=== PATIENT | male | born 1940 | race Caucasian/White ===

== ENCOUNTER → 2016-06-28 | Outpatient (CLI) | payer OTHER ==
[~2016-06-28] MED LIST: ASPIR-LOW81 MG PO; ASPIR-TRIN325 M1 PO; CALCIUM 500 +1 EAC2 PO; CENTRUM SILVER1 EAC3 PO; DECADRON1 MG PO; DULERA 100 MCG/13 GM IH; ENSURE ACTIVE414 ML PO; GLUCAGEN1 MG IM/SC; HEPARIN SO5000 UNITS SC; KEFLEX500 MG PO; LO-DOSE ASPIRIN81 M1 PO; LO-DOSE ASPIRIN81 M2 PO; MIRAPEX0.25 MG PO; NOVOLOG PE100 UNITS/ SC; OCUVITE LUTEIN1 EACH PO; OCUVITE TABLET1 EACH PO; PEPCID20 MG PO; POLYTRIM EYE DR10 ML LEFT EYE; PRAVACHOL40 MG PO; PRAVASTATIN SOD20 MG PO; PRAVASTATIN SOD40 MG PO; SENNA8.6 MG PO; SERTRALINE HCL50 MG PO; SINEMET 25-1001 EACH PO; TAMSULOSIN HCL0.4 MG PO; TRAMADOL HCL50 MG PO; XARELTO1 EACH PO; XARELTO20 MG PO; ZANTAC150 MG PO; ZOLOFT100 MG PO
== END | disposition home or self-care (01) ==
LOC: RAD 08:52
DX: M48.04 Spinal stenosis, thoracic region (principal); Z53.8 Procedure and treatment not carried out for other reasons

== ENCOUNTER → 2016-07-21 | Outpatient (CLI) | payer MEDICARE, OTHER ==
[~2016-07-21] MED LIST changes: -CALCIUM 500 +1 EAC2 PO; -CENTRUM SILVER1 EAC3 PO; -ENSURE ACTIVE414 ML PO; -GLUCAGEN1 MG IM/SC; -HEPARIN SO5000 UNITS SC; -LO-DOSE ASPIRIN81 M2 PO; -NOVOLOG PE100 UNITS/ SC; -SENNA8.6 MG PO; -TRAMADOL HCL50 MG PO
== END | disposition home or self-care (01) ==
LOC: CDC 09:38
DX: I45.9 Conduction disorder, unspecified (principal); R00.1 Bradycardia, unspecified; M48.04 Spinal stenosis, thoracic region; M51.34 Other intervertebral disc degeneration, thoracic region; R26.0 Ataxic gait
CPT/HCPCS: 93000

== ENCOUNTER 2016-07-26 08:38 | Inpatient (IN) | payer OTHER ==
[~2016-07-26] VITALS: Ht 172.7 cm; Wt 89.0 kg
[2016-08-04] VITALS (8 sets, daily range): BP systolic 115–161; BP diastolic 53–84
[2016-08-04 18:20] LABS: EOSINOPHIL (%) 0.1 % (0-5); HEMATOCRIT 42.4 % (38.0-50.0); IMMATURE GRANULOCYTE (%) 0.6 % (0.0-0.7); IMMATURE GRANULOCYTE COUNT 0.1 K/uL; LYMPHOCYTE COUNT 0.6 K/uL (1.0-2.8); MCH 30.2 PG (29.0-34.0); MCHC 33.5 G/DL (30.0-36.0); MCV 90.2 FL (86-99); MEAN PLAT.VOLUME 10.8 uM^3 (9.0-12.4); MONOCYTE (%) 2.7 % (3-12); MONOCYTE COUNT 0.4 K/uL (0-0.8); NEUTROPHIL (%) 92.5 % (45-76); NEUTROPHIL COUNT 13.3 K/uL (1.8-6.4); PLATELET COUNT 184 K/uL (156-360); RBC DIS.WIDTH-CV 14.8 % (11.8-14.6); RBC DIS.WIDTH-SD 48.6 % (39-53)
[2016-08-04 18:25] LABS: WHITE BLOOD COUNT 14.3 K/uL (4.1-10.2)
[2016-08-04 19:53] LABS: POINT-OF-CARE METER ID UU13113803
[2016-08-04 20:00] LABS: ANION GAP 10 MEQ/L (2-14); CHLORIDE 100 MEQ/L (99-109); GFR ESTIMATE (CALCULATED) > 59 mL/min/; GLUCOSE 183 mg/dL (70-99); MAGNESIUM 1.8 mg/dl (1.3-2.7); POTASSIUM 4.5 MEQ/L (3.7-5.4); SAMPLE HEMOLYSIS CHECK 0; SAMPLE ICTERIC CHECK 0; SAMPLE LIPEMIA CHECK 0; SODIUM 136 MEQ/L (136-147); UREA NITROGEN (BUN) 24 mg/dL (9-23)
[2016-08-05] VITALS (25 sets, daily range): BP systolic 90–159; BP diastolic 62–100
[2016-08-05 00:30] LABS: POINT-OF-CARE METER ID UU13113803
[2016-08-05 06:05] LABS: HEMATOCRIT 37.4 % (38.0-50.0); MCH 30.9 PG (29.0-34.0); MCHC 34.5 G/DL (30.0-36.0); MCV 89.7 FL (86-99); MEAN PLAT.VOLUME 10.9 uM^3 (9.0-12.4); PLATELET COUNT 165 K/uL (156-360); RBC DIS.WIDTH-CV 14.8 % (11.8-14.6); RBC DIS.WIDTH-SD 48.3 % (39-53); RED BLOOD COUNT 4.17 M/uL (4.00-5.50); WHITE BLOOD COUNT 11.3 K/uL (4.1-10.2)
[2016-08-05 06:31] LABS: ANION GAP 10 MEQ/L (2-14); CHLORIDE 102 MEQ/L (99-109); GFR ESTIMATE (CALCULATED) > 59 mL/min/; GLUCOSE 192 mg/dL (70-99); POTASSIUM 4.4 MEQ/L (3.7-5.4); SAMPLE HEMOLYSIS CHECK 0; SAMPLE ICTERIC CHECK 0; SAMPLE LIPEMIA CHECK 0; SODIUM 136 MEQ/L (136-147); UREA NITROGEN (BUN) 18 mg/dL (9-23)
[2016-08-05 11:55] LABS: MAGNESIUM 1.9 mg/dl (1.3-2.7)
[2016-08-05 12:01] LABS: POINT-OF-CARE METER ID UU13113803
[2016-08-05 17:04] LABS: POINT-OF-CARE METER ID UU14174217
[2016-08-05 21:40] LABS: ADD MIUA? YES; BILIRUBIN NEGATIVE; BLOOD MODERATE; COLOR GREEN ((YELLOW)); GLUCOSE (STRIP) 250; KETONES NEGATIVE; LEUKOCYTES NEGATIVE; NITRITE NEGATIVE; PH, URINE 6.5 (5-8); PROTEIN (STRIP) NEGATIVE; SPECIFIC GRAVITY 1.013 (1.000-1.030); UROBILINOGEN 0.2 MG/DL (0.2-1.0)
[2016-08-05 21:52] LABS: BACTERIA RARE /HPF; EPITHELIAL CELLS NONE SEEN /HPF; HYALINE CASTS 0-5 /LPF; MUCUS TRACE /LPF; RED BLOOD CELLS 20-30 /HPF (0-5); UCUL ADDED? NO; WHITE BLOOD CELLS 0-5 /HPF (0-5)
[2016-08-05 22:01] LABS: POINT-OF-CARE METER ID UU14174217
[2016-08-06] VITALS (18 sets, daily range): BP systolic 99–153; BP diastolic 48–78
[2016-08-06 05:33] LABS: EOSINOPHIL (%) 0 % (0-5); HEMATOCRIT 33.4 % (38.0-50.0); IMMATURE GRANULOCYTE (%) 0.2 % (0.0-0.7); LYMPHOCYTE COUNT 0.6 K/uL (1.0-2.8); MCH 30.9 PG (29.0-34.0); MCHC 34.1 G/DL (30.0-36.0); MCV 90.5 FL (86-99); MEAN PLAT.VOLUME 10.8 uM^3 (9.0-12.4); MONOCYTE (%) 4.3 % (3-12); MONOCYTE COUNT 0.4 K/uL (0-0.8); NEUTROPHIL (%) 89.5 % (45-76); NEUTROPHIL COUNT 9.2 K/uL (1.8-6.4); PLATELET COUNT 155 K/uL (156-360); RBC DIS.WIDTH-CV 14.9 % (11.8-14.6); RBC DIS.WIDTH-SD 49.2 % (39-53); RED BLOOD COUNT 3.69 M/uL (4.00-5.50); WHITE BLOOD COUNT 10.3 K/uL (4.1-10.2)
[2016-08-06 05:57] LABS: ANION GAP 8 MEQ/L (2-14); CHLORIDE 104 MEQ/L (99-109); GFR ESTIMATE (CALCULATED) > 59 mL/min/; GLUCOSE 168 mg/dL (70-99); POTASSIUM 4.7 MEQ/L (3.7-5.4); SAMPLE HEMOLYSIS CHECK 0; SAMPLE ICTERIC CHECK 0; SAMPLE LIPEMIA CHECK 0; SODIUM 136 MEQ/L (136-147); UREA NITROGEN (BUN) 22 mg/dL (9-23)
[2016-08-06 12:03] LABS: POINT-OF-CARE METER ID UU13113803
[2016-08-06 18:06] LABS: POINT-OF-CARE METER ID UU14174217
[2016-08-07 00:40] VITALS: BP 136/70
[2016-08-07 03:41] VITALS: BP 149/72
[2016-08-07 13:49] VITALS: BP 158/75
[2016-08-07 17:25] VITALS: BP 146/66
[2016-08-07 21:00] VITALS: BP 125/74
[2016-08-07 22:40] LABS: POINT-OF-CARE METER ID UU14188577; POINT-OF-CARE USER ID AHSUCEG
[2016-08-08 00:21] VITALS: BP 154/78
[2016-08-08 11:35] VITALS: BP 136/76
[2016-08-08 16:14] VITALS: BP 133/75
[2016-08-09 00:02] VITALS: BP 129/73
[2016-08-09 07:41] LABS: POINT-OF-CARE METER ID UU14188577
[2016-08-09 07:48] VITALS: BP 128/78
[2016-08-09 12:14] LABS: POINT-OF-CARE METER ID UU14188577
[2016-08-09 13:47] LABS: POINT-OF-CARE METER ID UU14149397
[2016-08-09 13:48] LABS: HEMATOCRIT 31.7 % (38.0-50.0); MCH 29.7 PG (29.0-34.0); MCHC 33.1 G/DL (30.0-36.0); MCV 89.5 FL (86-99); MEAN PLAT.VOLUME 10.5 uM^3 (9.0-12.4); PLATELET COUNT 149 K/uL (156-360); RBC DIS.WIDTH-CV 14.9 % (11.8-14.6); RBC DIS.WIDTH-SD 48.9 % (39-53); RED BLOOD COUNT 3.54 M/uL (4.00-5.50)
[2016-08-09 13:56] LABS: WHITE BLOOD COUNT 6.7 K/uL (4.1-10.2)
[2016-08-09 14:02] LABS: ALKALINE PHOSPHATASE 99 IU/L (3-129); ANION GAP 7 MEQ/L (2-14); CHLORIDE 101 MEQ/L (99-109); GFR ESTIMATE (CALCULATED) > 59 mL/min/; GLUCOSE 123 mg/dL (70-99); POTASSIUM 4.2 MEQ/L (3.7-5.4); SAMPLE HEMOLYSIS CHECK 0; SAMPLE ICTERIC CHECK 0; SAMPLE LIPEMIA CHECK 0; SODIUM 135 MEQ/L (136-147); TOTAL BILIRUBIN 0.5 MG/DL (0.0-1.0); UREA NITROGEN (BUN) 19 mg/dL (9-23)
[2016-08-09 14:04] LABS: TROP-I INTERPRETATION NEGATIVE; TROPONIN-I < 0.01 ng/mL (0.0-0.30)
[2016-08-09 15:11] VITALS: BP 143/83
[2016-08-09 16:43] LABS: POINT-OF-CARE METER ID UU14188577
[2016-08-09 22:03] LABS: POINT-OF-CARE METER ID UU14188577
[2016-08-10 01:13] VITALS: BP 146/70
[2016-08-10 08:33] VITALS: BP 146/86
[2016-08-10 16:39] VITALS: BP 164/84
[2016-08-10 22:01] LABS: POINT-OF-CARE METER ID UU14188577
[2016-08-10 23:50] VITALS: BP 140/70
[2016-08-11 06:39] LABS: POINT-OF-CARE METER ID UU14188577
[2016-08-11 08:19] VITALS: BP 147/84
[2016-08-11] MEDS ORDERED: HEPARIN SO5000 UNITS SC (08:49)
[2016-08-11] MEDS ORDERED: GLUCAGEN1 MG IM/SC (10:34)
[2016-08-11] MEDS ORDERED: NOVOLOG PE100 UNITS/ SC (10:34)
[2016-08-11 12:00] LABS: POINT-OF-CARE METER ID UU14188577
[2016-08-11] MEDS ORDERED: ENSURE ACTIVE414 ML PO (13:08)
[2016-08-11] MEDS ORDERED: CALCIUM 500 +1 EAC2 PO (13:08)
== END 2016-08-11 14:07 | disposition designated cancer center or children's hospital (05) | DRG 459 ==
LOC: 2SOUTH 08:38 → 3EAST 08-04 06:29 → 4WEST 08-04 06:29 → 2SOUTH 08-04 06:29 → 4WEST 08-04 16:27 → 3EAST 08-06 19:28 → 2SOUTH 08-09 08:49 → 3EAST 08-11 14:07
PROVIDERS: Hospitalist; Internal Medicine Critical Care Medicine; Internal Medicine Nephrology; Neurological Surgery; Physician Assistant
DX: M51.04 Intervertebral disc disorders with myelopathy, thoracic region (principal); M51.84 Other intervertebral disc disorders, thoracic region; G96.19 Other disorders of meninges, not elsewhere classified; G82.20 Paraplegia, unspecified; G93.40 Encephalopathy, unspecified; T40.2X5A Adverse effect of other opioids, initial encounter; I95.9 Hypotension, unspecified; E78.5 Hyperlipidemia, unspecified; N40.1 Benign prostatic hyperplasia with lower urinary tract symptoms; R33.9 Retention of urine, unspecified; J44.9 Chronic obstructive pulmonary disease, unspecified; I27.2 Other secondary pulmonary hypertension; G20 Parkinson's disease; J45.909 Unspecified asthma, uncomplicated; K21.9 Gastro-esophageal reflux disease without esophagitis; Z86.73 Personal history of transient ischemic attack (TIA), and cerebral infarction without residual deficits; Z86.711 Personal history of pulmonary embolism; Z79.82 Long term (current) use of aspirin; Z79.01 Long term (current) use of anticoagulants
CPT/HCPCS: 36600; 70450; 72070; 76000; 80048; 80053; 81003; 82803; 82948; 83735; 84100; 84484; 85014; 85018; 85025; 85027; 86850; 86900; 86901; 92507 GN; 93005; 94640; 94640 76; 94799; 96125 GN; 97530 GO; 97530 GP; 97532 GN; 99202; C1781; J0330; J0690; J1100; J1170; J1265; J1644; J1815; J2405; J2930; J3010; J3370; J3480; S0020; S0028

== ENCOUNTER → 2016-08-03 | Outpatient (CLI) | payer OTHER | END | disposition home or self-care (01) | LOC: RAD 07-26 13:30 → OPR 07-26 13:30 → EDSTATUS 13:00 → OPR 08-08 13:00 | DX: M51.24 Other intervertebral disc displacement, thoracic region (principal) | CPT/HCPCS: 77012; J3010 ==

== ENCOUNTER 2016-08-13 11:49 | Inpatient (IN) | payer OTHER ==
[~2016-08-13] VITALS: Ht 175.3 cm; Wt 77.7 kg
[~2016-08-13 11:49] MED LIST changes: +CALCIUM 500 +1 EAC2 PO; +ENSURE ACTIVE414 ML PO; +GLUCAGEN1 MG IM/SC; +HEPARIN SO5000 UNITS SC; +NOVOLOG PE100 UNITS/ SC
[2016-08-13 13:39] LABS: HEMATOCRIT 31.3 % (38.0-50.0); MCH 30.3 PG (29.0-34.0); MCHC 33.9 G/DL (30.0-36.0); MCV 89.4 FL (86-99); MEAN PLAT.VOLUME 10.3 uM^3 (9.0-12.4); PLATELET COUNT 163 K/uL (156-360); RBC DIS.WIDTH-CV 14.5 % (11.8-14.6); RBC DIS.WIDTH-SD 46.1 % (39-53); WHITE BLOOD COUNT 6.6 K/uL (4.1-10.2)
[2016-08-13 13:49] LABS: PROTHROMBIN TIME 10.2 (9.2-11.2); PTT 25.9 (25-32)
[2016-08-13 13:51] LABS: CHLORIDE 102 mEq/L (99-109); SODIUM 134 mEq/L (136-147)
[2016-08-13 13:52] LABS: GLUCOSE 106 mg/dL (70-99)
[2016-08-13 13:54] LABS: ANION GAP 9 MEQ/L (2-14)
[2016-08-13 13:56] LABS: GFR ESTIMATE (CALCULATED) > 59 mL/min/
[2016-08-13 13:57] LABS: UREA NITROGEN (BUN) 23 mg/dL (9-23)
[2016-08-13 14:05] LABS: TROP-I INTERPRETATION NEGATIVE; TROPONIN-I 0.01 ng/mL (0.0-0.30)
[2016-08-13 14:20] LABS: EOSINOPHIL (%) 2.3 % (0-5); EOSINOPHIL COUNT 0.2 K/uL (0-0.3); IMMATURE GRANULOCYTE (%) 3.8 % (0.0-0.7); IMMATURE GRANULOCYTE COUNT 2.5 K/uL; MONOCYTE COUNT 0.4 K/uL (0-0.8); NEUTROPHIL (%) 72.6 % (45-76); NEUTROPHIL COUNT 4.8 K/uL (1.8-6.4)
[2016-08-13 14:38] LABS: HEMATOLOGY COMMENT 1 SMEAR COMPATIBLE; PLAT.SUFFICIENCY ADEQUATE
[2016-08-13] MEDS ORDERED: XARELTO20 MG PO (15:05)
[2016-08-13] MEDS ORDERED: SENNA8.6 MG PO (15:22)
[2016-08-13] MEDS ORDERED: CENTRUM SILVER1 EAC3 PO (15:23)
[2016-08-13] MEDS ORDERED: TRAMADOL HCL50 MG PO (15:24)
[2016-08-13] MEDS ORDERED: LO-DOSE ASPIRIN81 M2 PO (15:25)
[2016-08-13 15:42] LABS: BILIRUBIN NEGATIVE; BLOOD NEGATIVE; COLOR YELLOW ((YELLOW)); GLUCOSE (STRIP) NEGATIVE; KETONES 5; LEUKOCYTES NEGATIVE; NITRITE NEGATIVE; PROTEIN (STRIP) NEGATIVE; UROBILINOGEN 0.2 MG/DL (0.2-1.0)
[2016-08-13 15:44] LABS: ADD MIUA? NO; UCUL ADDED? NO
[2016-08-13 19:19] LABS: METH RESISTANT S AUREUS PCR NEGATIVE (NEGATIVE)
[2016-08-13 19:24] LABS: PROBE CHECK PASS; SPECIMEN PROCESSING CONTROL PASS
[2016-08-13 20:00] VITALS: BP 135/98
[2016-08-14 00:23] LABS: POINT-OF-CARE METER ID UU14162513
[2016-08-14 05:00] VITALS: BP 125/75
[2016-08-14 06:27] LABS: ALKALINE PHOSPHATASE 94 IU/L (3-129); ANION GAP 8 MEQ/L (2-14); CHLORIDE 99 MEQ/L (99-109); GFR ESTIMATE (CALCULATED) > 59 mL/min/; GLUCOSE 103 mg/dL (70-99); POTASSIUM 4.1 MEQ/L (3.7-5.4); SAMPLE HEMOLYSIS CHECK 0; SAMPLE ICTERIC CHECK 0; SAMPLE LIPEMIA CHECK 0; SODIUM 131 MEQ/L (136-147); TOTAL BILIRUBIN 0.4 MG/DL (0.0-1.0); UREA NITROGEN (BUN) 27 mg/dL (9-23)
[2016-08-14 07:22] LABS: HEMATOCRIT 31.9 % (38.0-50.0); MCHC 33.9 G/DL (30.0-36.0); MCV 88.6 FL (86-99); MEAN PLAT.VOLUME 10.2 uM^3 (9.0-12.4); PLATELET COUNT 178 K/uL (156-360); RBC DIS.WIDTH-CV 14.6 % (11.8-14.6); RBC DIS.WIDTH-SD 47.2 % (39-53)
[2016-08-14 08:24] VITALS: BP 120/69
[2016-08-14 12:14] VITALS: BP 125/71
[2016-08-14 12:45] LABS: POINT-OF-CARE METER ID UU13113700
[2016-08-14 16:17] VITALS: BP 136/74
[2016-08-14 18:07] LABS: POINT-OF-CARE METER ID UU13113700
[2016-08-14 20:00] VITALS: BP 154/75
[2016-08-14 21:13] LABS: POINT-OF-CARE METER ID UU13113831
[2016-08-14 23:32] VITALS: BP 155/79
[2016-08-15] VITALS: BP 167/78
[2016-08-15 03:48] VITALS: BP 152/84
[2016-08-15 06:59] LABS: EOSINOPHIL (%) 1.4 % (0-5); EOSINOPHIL COUNT 0.1 K/uL (0-0.3); HEMATOCRIT 31.5 % (38.0-50.0); IMMATURE GRANULOCYTE (%) 1.2 % (0.0-0.7); IMMATURE GRANULOCYTE COUNT 0.1 K/uL; LYMPHOCYTE COUNT 0.9 K/uL (1.0-2.8); MCH 29.5 PG (29.0-34.0); MCHC 33.3 G/DL (30.0-36.0); MCV 88.5 FL (86-99); MEAN PLAT.VOLUME 10.4 uM^3 (9.0-12.4); MONOCYTE (%) 4.3 % (3-12); MONOCYTE COUNT 0.3 K/uL (0-0.8); NEUTROPHIL (%) 80.9 % (45-76); NEUTROPHIL COUNT 6.2 K/uL (1.8-6.4); PLATELET COUNT 190 K/uL (156-360); RBC DIS.WIDTH-CV 14.3 % (11.8-14.6); RBC DIS.WIDTH-SD 46.2 % (39-53); RED BLOOD COUNT 3.56 M/uL (4.00-5.50); WHITE BLOOD COUNT 7.7 K/uL (4.1-10.2)
[2016-08-15 07:27] LABS: ANION GAP 7 MEQ/L (2-14); CHLORIDE 100 MEQ/L (99-109); GFR ESTIMATE (CALCULATED) > 59 mL/min/; GLUCOSE 110 mg/dL (70-99); POTASSIUM 3.9 MEQ/L (3.7-5.4); SAMPLE HEMOLYSIS CHECK 0; SAMPLE ICTERIC CHECK 0; SAMPLE LIPEMIA CHECK 0; SODIUM 132 MEQ/L (136-147); UREA NITROGEN (BUN) 19 mg/dL (9-23)
[2016-08-15 12:00] VITALS: BP 155/68
[2016-08-15 12:25] LABS: POINT-OF-CARE METER ID UU14162513
[2016-08-15 16:38] VITALS: BP 159/76
[2016-08-15 17:42] LABS: POINT-OF-CARE METER ID UU13113700
[2016-08-15 19:23] VITALS: BP 154/83
[2016-08-15 21:01] LABS: POINT-OF-CARE METER ID UU13113700
[2016-08-15 23:51] VITALS: BP 149/74
[2016-08-16 03:15] VITALS: BP 163/81
[2016-08-16 07:07] VITALS: BP 168/77
[2016-08-16 11:48] VITALS: BP 154/86
[2016-08-16] MEDS ORDERED: XARELTO20 MG PO (13:02)
== END 2016-08-16 13:02 | DRG 948 ==
LOC: EME → EDBD 11:49 → EME 11:49 → EDOF 16:43 → 5WEST 17:34 → 5EAST 08-14 17:22 → 5WEST 08-14 17:22 → 5EAST 08-15 23:48
PROVIDERS: Emergency Medicine; Hospitalist; Internal Medicine
DX: R41.82 Altered mental status, unspecified (principal); K92.2 Gastrointestinal hemorrhage, unspecified; M51.04 Intervertebral disc disorders with myelopathy, thoracic region; E87.1 Hypo-osmolality and hyponatremia; R33.9 Retention of urine, unspecified; G82.20 Paraplegia, unspecified; Z86.73 Personal history of transient ischemic attack (TIA), and cerebral infarction without residual deficits; J44.9 Chronic obstructive pulmonary disease, unspecified; G20 Parkinson's disease; N31.9 Neuromuscular dysfunction of bladder, unspecified; R26.2 Difficulty in walking, not elsewhere classified; N50.89 Other specified disorders of the male genital organs; T40.2X5A Adverse effect of other opioids, initial encounter
CPT/HCPCS: 70450; 70551; 71010; 74020; 80048; 80053; 81003; 82948; 84484; 85025; 85027; 85610; 85730; 87641; 93005; 93306; 94799; 99281; 99285; G0378; J1644; J1815; J7030